=== PATIENT | male | born 1955 | race Caucasian/White ===

== ENCOUNTER 2017-11-29 09:30 | Outpatient (RCR) | payer BC ==
[~2017-11-29 09:30] MED LIST: 00186-0370-20 IH; ASPIRIN 81M81 MG/TA2 PO; CANA300T PO; DIABETA 5MG5 MG/TAB PO; FLOVENT DI50 MCG/Act IH; GLUCOPHAGE1000 MG PO; HCTZ12.5TAB PO; JANUVIA 100MG100 MG PO; MOTRIN 200200 MG/TAB PO; MUCUS RELIEF400 M1 PO; MULTI VITAMINS1 TAB PO; NORCO 325 MG-51 TAB PO; NORVASC 10MG10 MG PO; PEPCID 20MG TAB20 MG PO; PRINIVIL40 MG PO; SINGULAIR 110 MG/TAB PO; TESSALON P100 MG/CAP PO; VENTOLIN0.09 MG IH; ZOVIRAX400 MG PO; ZYRTEC 10MG10 MG PO
== END 2017-12-11 14:22 | disposition home or self-care (01) ==
LOC: WSPT 09:30
DX: M25.511 Pain in right shoulder (principal)

== ENCOUNTER 2018-01-08 10:30 | Outpatient (RCR) | payer BC | END 2018-02-19 17:18 | disposition home or self-care (01) | LOC: WSOT 10:30 | DX: M65.4 Radial styloid tenosynovitis [de Quervain] (principal); Z79.82 Long term (current) use of aspirin; Z79.899 Other long term (current) drug therapy ==

== ENCOUNTER 2019-06-04 15:10 | Emergency (ER) | payer MEDICARE, BC ==
[~2019-06-04] VITALS: Ht 182.9 cm; Wt 101.4 kg
[2019-06-04 15:22] VITALS: BP 130/89; TEMP 97.6
[2019-06-04 16:32] LABS: BASO # 0.1 (0.0-0.2); BASO % 0.6 % (0.0-2.0); EOS % 0.2 % (0-4.0); GRAN # 7.2 (1.4-6.5); GRAN % 76.7 % (42.2-75.2); HEMATOCRIT 45.3 % (42.0-52.0); HEMOGLOBIN 15.7 g/dl (13.5-18.0); LYMPH # 1.7 (1.2-3.4); LYMPH % 18.3 % (20.0-51.0); MEAN CELL VOLUME 87 fl (80.0-100.0); MEAN CORPUSCULAR HEMOGLOBIN 30 pg (27.0-31.0); MEAN CORPUSCULAR HGB CONC 35 g/dl (33.0-37.0); MONO # 0.3 (0.1-0.6); MONO % 3.5 % (1.7-9.3); PLATELET COUNT 230 K/mm3 (130-400); RED BLOOD COUNT 5.21 M/mm3 (4.20-5.60); REDCELL DISTRIBUTION WIDTH-CV 14.1 % (11.5-14.5)
[2019-06-04 16:41] LABS: ALBUMIN 4.5 gm/dL (3.5-5.0); BILIRUBIN,TOTAL 0.6 mg/dL (0.0-1.0); CALCIUM 9.8 mg/dL (8.4-10.2); CREATININE, serum 0.7 (0.66-1.25); POTASSIUM 4.2 mmol/L (3.4-5.0); TOTAL PROTEIN 7.9 gm/dL (6.4-8.2)
[2019-06-04] MEDS ORDERED: TESSALON PERLE200 MG PO (17:22)
[2019-06-04 17:30] VITALS: PULSE 102
== END 2019-06-04 17:30 | disposition home or self-care (01) ==
LOC: COL.ER 15:10
PROVIDERS: Physician Assistant
DX: J40 Bronchitis, not specified as acute or chronic (principal); I10 Essential (primary) hypertension; E11.9 Type 2 diabetes mellitus without complications; Z79.84 Long term (current) use of oral hypoglycemic drugs; Z87.09 Personal history of other diseases of the respiratory system

== ENCOUNTER → 2019-12-24 | Outpatient (CLI) | payer MEDICARE, BC ==
[~2019-12-24] MED LIST changes: +TESSALON PERLE200 MG PO
== END ==
LOC: COL.RAD 07:33
DX: J18.9 Pneumonia, unspecified organism (principal); D35.02 Benign neoplasm of left adrenal gland
CPT/HCPCS: Q9967

== ENCOUNTER → 2020-03-23 | Outpatient (CLI) | payer BC, MEDICARE ==
[~2020-03-23] MED LIST changes: +RT ALBUTER2.5 MG/0.5 IH
== END ==
LOC: COL.VAS 10:37
DX: I51.7 Cardiomegaly (principal); J45.40 Moderate persistent asthma, uncomplicated

== ENCOUNTER → 2021-02-08 | Outpatient (CLI) | payer MEDICARE, BC | LOC: ZCOL.LAB 13:32 | DX: R05 Cough (principal); Z20.822 Contact with and (suspected) exposure to COVID-19 ==

== ENCOUNTER 2023-05-23 13:49 | Day surgery (SDC) | payer MEDICARE, BC ==
[~2023-05-23] VITALS: Ht 182.9 cm; Wt 90.6 kg
[~2023-05-23 13:49] MED LIST changes: +AZO-STANDARD95 MG PO; +DUPIXENT300 MG/2 M SQ; +FARXIGA10 PO; +GALZIN50 MG PO; +HCTZ 25MG TAB25 MG PO; -HCTZ12.5TAB PO; +MAG-OX 400400 MG/TAB PO; -NORVASC 10MG10 MG PO; +NORVASC 5MG5 MG/TAB PO; +VITAMIN C500 MG PO; +VITAMIN D31000 IU PO; +ZOVIRAX800 MG PO
[2023-05-23 14:25] VITALS: BP 130/81; PULSE 90; TEMP 98.2
[2023-05-23] MEDS ORDERED: DUPIXENT P300 MG/2 M SQ (15:05)
[2023-05-23] MEDS ORDERED: 00186-0370-20 IH (15:06)
[2023-05-23] MEDS ORDERED: VENTOLIN0.09 MG IH (15:07)
[2023-05-23] MEDS ORDERED: SINGULAIR 110 MG/TAB PO (15:07)
[2023-05-23] MEDS ORDERED: MUCUS RELIEF400 M1 PO (15:08)
[2023-05-23] MEDS ORDERED: FARXIGA10 PO (15:09)
[2023-05-23] MEDS ORDERED: ZYRTEC 10MG10 MG PO (15:09)
[2023-05-23] MEDS ORDERED: DIABETA 5MG5 MG/TAB PO (15:10)
[2023-05-23] MEDS ORDERED: NORVASC 5MG5 MG/TAB PO (15:10)
[2023-05-23] MEDS ORDERED: JANUVIA50 MG PO (15:11)
[2023-05-23] MEDS ORDERED: MULTIPLE VITAMI1 TA5 PO (15:12)
[2023-05-23] MEDS ORDERED: ZOVIRAX400 MG PO (15:12)
[2023-05-23] MEDS ORDERED: VTAMINC250TA PO (15:13)
[2023-05-23] MEDS ORDERED: ZINC7.5 MG PO (15:13)
[2023-05-23] MEDS ORDERED: VITAMIN D3400 I1 PO (15:14)
[2023-05-23] MEDS ORDERED: ULTRAVATE CREAM15 GM TP (15:15)
[2023-05-23] MEDS ORDERED: DULCOLAX STOOL100 MG PO (15:16)
[2023-05-23 17:15] VITALS: BP 145/80; PULSE 76; TEMP 97.6
[2023-05-23 17:30] VITALS: BP 144/84; PULSE 72
--- NOTE | 2023-05-23 18:03 | NUR ---
1715-REPORT OBTAINED FROM PAM REYNA. PATIENT ARRIVED VIA CART TO [facility], ALERT AND ORIENTED ON ARRIVAL. SPOUSE AT BEDSIDE. PT DENIES PAIN OR NAUSEA, URINE IN VELARDE CATHETER NOTED TO BE PINK TINGED. VITAL SIGNS TAKEN, VSS. PT TOLERATING PO LIQUIDS. 1730-PT DENIES COMPLAINTS, VSS. 1740-DISCHARGE INSTRUCTIONS REVIEWED WITH PT AND SPOUSE, QUESTIONS INVITED. PT ASSISTED WITH DRESSING AND VELARDE CATHETER INSTRUCTIONS REVIEWED. PT VERBALIZED UNDERSTANDING 175-IV CATHETER DISCONTINUED, TIP INTACT. PRESSURE HELD AND BANDAGE APPLIED. 175-PT DISCHARGED HOME TO [facility] VIA WHEELCHAIR, ACCOMPANIED BY SPOUSE. ALL BELONGINGS AND DC PAPERWORK SENT WITH PT.
== END 2023-05-23 17:59 | disposition home or self-care (01) ==
LOC: SDCO 13:49
DX: C67.8 Malignant neoplasm of overlapping sites of bladder (principal); N32.89 Other specified disorders of bladder; I10 Essential (primary) hypertension; G47.33 Obstructive sleep apnea (adult) (pediatric); J45.909 Unspecified asthma, uncomplicated; Z79.899 Other long term (current) drug therapy
CPT/HCPCS: C1769; J0690; J1100; J1885; J2405; J2704; J3010; J7030